=== PATIENT | female | born 1970 | race Caucasian/White ===

== ENCOUNTER → 2016-11-01 | Outpatient (CLI) | payer OTHER ==
[~2016-11-01] MED LIST: CALC-354 PO; GLUCTAB7 PO; LISI-461 PO; MULT-513 PO; PRT/40 PO; VLT50 PO
--- NOTE | 2016-11-01 17:03 | MAMMOGRAPHY REPORT ---
BILATERAL DIGITAL SCREENING MAMMOGRAM TOMOSYNTHESIS WITH CAD: 11/01/2016 CLINICAL HISTORY: Routine screening. Patient has no complaints. TECHNIQUE: Breast tomosynthesis in addition to standard 2D mammography was performed. Current study was also evaluated with a Computer Aided Detection (CAD) system. COMPARISON: Comparison is made to exams dated: 10/29/2015 mammogram, 07/08/2013 mammogram, 10/21/2014 mammogram, 06/17/2012 mammogram, and 06/12/2011 mammogram - [facility]. BREAST COMPOSITION: The tissue of both breasts is almost entirely fatty. FINDINGS: There are a few scattered stable benign-appearing punctate microcalcifications. No new hodges spicious mass, architectural distortion or cluster of microcalcifications is seen. IMPRESSION: ACR BI-RADS CATEGORY 1: NEGATIVE There is no mammographic evidence of malignancy. A 1 year screening mammogram is recommended. The p atient will receive written notification of the results. Approximately 10% of breast cancers are not detected with mammography. A negative mammographic repor t should not delay biopsy if a clinically suggestive mass is present. Kathryn Kahn M.D. ay/:11/01/2016 16:28:22 Curator [employer]: Shanda EVANGELISTA(Patric)(M), [facility] letter sent: Normal 1/2 BI-RADS Code: ACR BI-RADS Category 1: Negative
== END | disposition home or self-care (01) ==
LOC: C.MAMM 11:06
PROVIDERS: ATTEND Nurse Practitioner
DX: Z12.31 Encounter for screening mammogram for malignant neoplasm of breast (principal)

== ENCOUNTER → 2017-01-23 | Outpatient (CLI) | payer OTHER ==
[~2017-01-23] MED LIST changes: +PANT40TA2 PO; -PRT/40 PO
--- NOTE | 2017-01-23 15:16 | DIAGNOSTIC IMAGING REPORT ---
RIGHT PELVIS UNILATERAL HIP 1 VIEW CLINICAL HISTORY: RIGHT HIP PAIN Right pain COMPARISON: None. DISCUSSION: The bones and joint spaces appear intact. There is no evidence of fracture, dislocation or bony disease. There is no evidence for soft tissue swelling. IMPRESSION: Negative study. Electronically signed by: Mejia Marin M.D. 01/23/2017 3:15 PM Dictated Date/Time: 01/23/2017 3:15 PM
== END | disposition home or self-care (01) ==
LOC: C.RDSM 14:00
PROVIDERS: ATTEND Physician Assistant
DX: M25.551 Pain in right hip (principal)

== ENCOUNTER → 2017-03-16 | Outpatient (CLI) | payer OTHER ==
[~2017-03-16] MED LIST changes: -PANT40TA2 PO; +PRT/40 PO
--- NOTE | 2017-03-16 11:51 | DIAGNOSTIC IMAGING REPORT ---
AP PELVIS AND BILATERAL HIPS 3 VIEWS CLINICAL HISTORY: CONTINUED BILATERAL HIP PAIN COMPARISON: Conventional radiographic study dated 01/23/2017 DISCUSSION: No acute fractures are visualized. The joint space of each hip appears relatively well preserved for age. There are no erosive or destructive changes. IMPRESSION: Unremarkable conventional radiographic evaluation of the hips Electronically signed by: Vic Quezada M.D. 03/16/2017 11:50 AM Dictated Date/Time: 03/16/2017 11:49 AM
== END | disposition home or self-care (01) ==
LOC: C.RDSM 13:44
PROVIDERS: ATTEND Physician Assistant
DX: M25.551 Pain in right hip (principal)

== ENCOUNTER → 2017-09-28 | Outpatient (CLI) | payer OTHER ==
[~2017-09-28] MED LIST changes: +PANT40TA2 PO; -PRT/40 PO
[2017-09-28 13:47] LABS: BLOOD UREA NITROGEN 14 mg/dl (7-18); CALCIUM 9.3 mg/dl (8.5-10.1); CARBON DIOXIDE 28 mmol/L (21-32); CREATININE 0.73 mg/dl (0.60-1.20); GLUCOSE 109 mg/dl (70-99); POTASSIUM 3.7 mmol/L (3.5-5.1); SODIUM 137 mmol/L (136-145)
== END | disposition home or self-care (01) ==
LOC: C.LAB1850 11:45
PROVIDERS: ATTEND Physician Assistant Medical
DX: Z00.00 Encounter for general adult medical examination without abnormal findings (principal)

== ENCOUNTER → 2017-10-19 | Outpatient (CLI) | payer OTHER ==
--- NOTE | 2017-10-19 13:39 | DIAGNOSTIC IMAGING REPORT ---
LUMBAR SPINE MIN 4 VIEWS CLINICAL HISTORY: 47 years-old Female presenting with LUMBAR RADICULOPATHY. TECHNIQUE: Frontal, bilateral oblique, lateral, and coned in lateral views of the lumbar spine were obtained. COMPARISON: CT of the abdomen and pelvis from 2006. FINDINGS: No scoliosis. Normal lumbar lordosis. Transitional lumbosacral anatomy. The vertebral body levels are labeled as on the images. Vertebral bodies maintain normal height and alignment. Intervertebral disc height loss noted at T11-12 and potentially at L5-S1. The remaining intervertebral disc spaces are preserved. Mild anterior osteophytosis. No pars defect. No radiographic evidence of compression deformity or subluxation. IMPRESSION: 1. Transitional lumbosacral anatomy. This can variably be a cause of back pain. 2. Mild multilevel degenerative changes. 3. No radiographic evidence of acute osseous injury. Electronically signed by: Matthias Thao M.D. 10/19/2017 1:38 PM Dictated Date/Time: 10/19/2017 1:33 PM
== END | disposition home or self-care (01) ==
LOC: C.RDSM 13:20
PROVIDERS: ATTEND Physician Assistant
DX: M54.16 Radiculopathy, lumbar region (principal)

== ENCOUNTER → 2017-11-16 | Outpatient (CLI) | payer OTHER ==
--- NOTE | 2017-11-19 13:57 | MAMMOGRAPHY REPORT ---
BILATERAL DIGITAL SCREENING MAMMOGRAM TOMOSYNTHESIS WITH CAD: 11/16/2017 CLINICAL HISTORY: Routine screening. Patient has no complaints. TECHNIQUE: Breast tomosynthesis in addition to standard 2D mammography was performed. Current study was also evaluated with a Computer Aided Detection (CAD) system. COMPARISON: Comparison is made to exams dated: 11/01/2016 mammogram, 10/29/2015 mammogram, 10/21/2014 ma mmogram, 07/08/2013 mammogram, 06/17/2012 mammogram, and 06/12/2011 mammogram - [facility]. BREAST COMPOSITION: The tissue of both breasts is almost entirely fatty. FINDINGS: No suspicious masses, calcifications, or areas of architectural distortion are noted in ei ther breast. There has been no significant interval change compared to prior exams. IMPRESSION: ACR BI-RADS CATEGORY 1: NEGATIVE There is no mammographic evidence of malignancy. A 1 year screening mammogram is recommended. The pa tient will receive written notification of the results. Approximately 10% of breast cancers are not detected with mammography. A negative mammographic report should not delay biopsy if a clinically suggestive mass is present. Elizabet Piper M.D. ah/:11/16/2017 14:53:48 Inspector [employer]ke Lining: Padmini EVANGELISTA(Patric)(M), [facility] letter sent: Normal 1/2 BI-RADS Code: ACR BI-RADS Category 1: Negative
== END | disposition home or self-care (01) ==
LOC: C.MAMM 13:50
PROVIDERS: ATTEND Obstetrics & Gynecology
DX: Z12.31 Encounter for screening mammogram for malignant neoplasm of breast (principal)

== ENCOUNTER → 2018-04-03 | Outpatient (CLI) | payer OTHER | END | disposition home or self-care (01) | LOC: C.RDSM 10:26 | PROVIDERS: ATTEND Orthopaedic Surgery Sports Medicine | DX: M79.604 Pain in right leg (principal) ==

== ENCOUNTER → 2018-04-24 | Day surgery (SDC) | payer OTHER ==
[2018-04-23 08:46] VITALS: Ht 157.5 cm; Wt 97.3 kg
[~2018-04-24] VITALS: Ht 157.5 cm; Wt 97.3 kg
[~2018-04-24] MED LIST changes: +CLB/200 PO; +ESOM20CA PO; +IOPAMIDOL INJ 61% 15 ML VIAL ONE; +LIDOCAINE HCL 1% MPF 5 ML VIAL ONE; -LISI-461 PO; -PANT40TA2 PO; +RAMI2.5C PO; +SODIUM CHLORIDE 0.9% INJ 10 ML VIAL ONE; -VLT50 PO
--- NOTE | 2018-04-24 14:06 | History & Physical Bridge - SC ---
H&P Re-Evaluation Bridge Note: I have examined the patient, reviewed the History & Physical and in the interval since the performance of the History & Physical I have noted the following changes of clinical significance: No changes noted
[2018-04-24 14:35] VITALS: TEMP 37.3
--- NOTE | 2018-04-24 14:35 | [facility] Post Operative Brief Note ---
Immediate Operative Summary Operative Date Apr 24, 2018. Pre-Operative Diagnosis L4-L5 disc disease with left lower extremity radiculopathy Post-Operative Diagnosis Same Procedure(s) Performed Lumbar Epidural Steroid Injection Surgeon Dr. Haleigh Kaye Sample Patternmaker Surgeon(s) None Estimated Blood Loss 0 Findings Consistent with Post-Op Diagnosis Specimens NA Drains None Anesthesia Type Local Complication(s) none Disposition Disposition:
--- NOTE | 2018-04-24 14:37 | Discharge Instructions ---
Discharge Instructions Date of Service Apr 24, 2018. Visit Reason for Visit: Lumbar Radiculopathy Discharge Discharge Diagnosis / Problem: Leg pain Discharge Goals Goal(s): Decrease discomfort, Improve function Activity Recommendations Activity Limitations: resume your previous activity Anesthesia . Post Anesthesia Instructions: If you have had General Anesthesia or IV Sedation: * Do not drive today. * Resume driving when surgeon permits. * Do not make important decisions or sign legal documents today. * Call surgeon for: 1. Temperature elevations greater than 101 degrees F. 2. Uncontrollable pain. 3. Excessive bleeding. 4. Persistent nausea and vomiting. 5. Medication intolerance (nausea, vomiting or rash). * For nausea and vomiting use only clear liquids such as: tea, soda, bouillon until nausea subsides, then gradually increase diet as tolerated. * If you have any concerns or questions, call your surgeon's office. If physician is unavailable and it is an emergency, call 911 or go to the nearest emergency room. . Diet Recommendations Recommended Home Diet: no limitations Procedures Procedures Performed: Lumbar Epidural Steroid Injection Pending Studies Studies pending at discharge: no Medical Emergencies . Who to Call and When: Medical Emergencies: If at any time you feel your situation is an emergency, please call 911 immediately. . Non-Emergent Contact Non-Emergency issues call your: Specialist . . "Provider Documentation" section prepared by Jose Maria Kaye. .
[2018-04-24 14:59] VITALS: BP 130/82; PULSE 82; O2SAT 97
--- NOTE | 2018-04-24 15:28 | OPERATIVE REPORT ---
DATE OF OPERATION: 04/24/2018 PREOPERATIVE DIAGNOSIS: L4 disc disease with lower extremity radiculopathy, right greater than left. POSTOPERATIVE DIAGNOSIS: L4 disc disease with lower extremity radiculopathy, right greater than left. PROCEDURE: Right paramedian L4-L5 intralaminar epidural steroid injection under fluoroscopic guidance. INDICATIONS: The patient is a 47-year-old white female who has a burning pain down the left leg and into the foot following a classic L5 dermatomal distribution. When she was last seen, she reports today that the right side is bothering her significantly more than the left. She presents today for an epidural steroid injection. MRI confirmed a disc bulge with foraminal narrowing coming in close contact to the L4-L5 nerve roots. PHYSICAL EXAMINATION: Pleasant female, seated comfortably. She is without any focal weakness. She has no focal deficits, but soreness with forward flexion. CONSENT: Verbal and written consent was obtained from the patient. Risks and benefits were reviewed. Risks include but are not limited to epidural abscess, epidural hematoma, allergic reaction, dural puncture. The patient wishes to proceed. DESCRIPTION OF PROCEDURE: The patient was taken back to the special procedures room of the [facility] where she was maintained in a prone position. Backside was cleansed with Betadine x3 and a dry sterile dressing was applied. Fluoroscopy was used to identify the L4-L5 intralaminar space. Overlying skin on the right side was anesthetized. A 20-gauge 6-inch Tuohy needle was directed down towards the midline into the intralaminar space and advanced under lateral fluoroscopic guidance for a depth of 13 cm. Isovue-300 contrast 1 mL demonstrated epidural uptake pattern. She then underwent injection after negative aspiration of 40 mg of Depo-Medrol and 4 mL of preservative-free sodium chloride. Injection was well tolerated. DISPOSITION: 1. The patient is taken out into the discharge recovery area where she will be discharged home once discharge criteria have been met. 2. Follow up in the [facility] office in 4 weeks' time. I attest to the content of the Intraoperative Record and any orders documented therein. Any exception s are noted below.
== END | disposition home or self-care (01) ==
LOC: X.SURG 12:46
PROVIDERS: ATTEND Physical Medicine & Rehabilitation
DX: M51.16 Intervertebral disc disorders with radiculopathy, lumbar region (principal)

== ENCOUNTER 2024-01-21 13:51 | Observation (INO) ==
--- NOTE | 2024-01-21 15:00 | Emergency Department Note ---
Impression & Plan Multiple falls, Ambulatory dysfunction ED Provider Note NAME: MAI AUGUSTIN AGE: 53 SEX: F : 1970 ARRIVES VIA: Walk-In INFORMANT: Patient, ED PROVIDER(S): Abraham Muñoz MD CHIEF COMPLAINT: Foot weakness HPI: This is a 53-year-old female presenting for right foot weakness. Patient states that she has been falling on this leg more than usual. She has had a feels weak and there is blood accumulating in her leg/fluid. Show she has tingling in her leg as well. On for the past 5 to 6 days. No blood thinners. No fevers, chills, nausea, vomiting, chest pain, back pain, pleurisy. She does note that she previous had a ryan in this leg which taken out Mallard. ROS: See above HPI for pertinent positives & negatives. A total of 10 systems reviewed and were otherwise negative. PHYSICAL EXAMINATION: General: resting comfortably in no acute distress Head: Normocephalic and atraumatic Eyes: Normal inspection, extraocular muscles intact Ear, nose, throat: Normal external exam Neck: Normal range of motion Respiratory: lungs clear to auscultation bilaterally Cardiovascular: Regular rate/rhythm, no murmur GI: soft, nontender, no guarding or rebound Extremities: nontender, moves all extremities, bilateral lower extremity swelling without erythema, point tenderness, soft compartments Neuro: The patient awake and alert, appropriately conversive, no focal deficits, symmetric faces Skin: Warm, dry, and intact MEDICAL DECISION MAKING: This is a 53-year-old female senting for right lower extremity weakness. Patient says she is not following her often due to sensation of having blood/fluid accumulating her leg as well as weakness. She able to lift her leg without any abnormalities. Her strength is equal on bilateral lower extremities. Sensation is intact. Low concern for acute neurologic process or is considered. Otherwise consider DVT/CHF. -Labs reviewed showing no significant leukocytosis, anemia or significant electrolyte disturbance. Troponin negative, BNP negative. Urinalysis reveals no signs of recurrent UTI, likely contamination and will await culture. -Patient's tibia/fibula x-ray as independent her by me reveals healed distal tibia/fib fractures without acute fracture/dislocation -Patient ultrasound of the lower extremity is negative currently -Chest Xray independently interpreted by me showing no pneumothorax, focal opacity, or pleural effusions. -Do suspect patient's symptoms are relating to fluid/failure to thrive. Discussed option with patient including discharge versus admission. Patient as well as family are hesitant to take patient home as she has been falling multiple times do not feel that she is safe to go home. They are requesting admission. -Patient will be discussed with hospitalist service, Dr. Ordaz for admission Differential diagnosis: DVT, stroke, sciatica, fluid overload, fracture ER treatment provided: See below Diagnostics interpreted by me: ECG: None Cardiac Monitoring: An order was placed for continuous cardiac monitoring. The monitor shows a rate of 99 with sinus rhythm. Laboratory studies: As stated above and show below. Imaging studies: See below. Past Med/Surg History Problem List (Updated 01/23/24 @ 10:42 by Abraham Muñoz MD) Metabolic syndrome Severe obesity (BMI >= 40) GERD without esophagitis (Chronic) Hypertension (Chronic) Intellectual functioning disability (Acute) Obesity (Acute) Osteoarthritis of knee (Chronic) Urge and stress incontinence (Acute) Classical migraine without intractable migraine (Chronic) Multiple falls (Chronic) Neuropathy Encounter for gynecological examination without abnormal finding Ambulatory dysfunction (Acute) Mixed stress and urge incontinence Prediabetes Medical History Metabolic syndrome Severe obesity (BMI >= 40) Ambulatory dysfunction Housing instability, housed, homelessness in past 12 months Neuropathy Classical migraine without intractable migraine Mild cervical dysplasia, histologically confirmed Sciatica Postmenopausal status Patellofemoral syndrome Intellectual functioning disability Hypertension GERD without esophagitis Disc degeneration, lumbar Osteoarthritis History of bladder problems Surgical History H/O myringotomy H/O right knee surgery History of tonsillectomy History of bilateral tubal ligation History of cholecystectomy History of open reduction and internal fixation (ORIF) procedure Family History Father Coronary heart disease Heart disease Mother Coronary heart disease Heart disease Denies family history of Colon cancer Ovarian cancer Prostate cancer Diabetes Breast cancer Colorectal cancer Social History Smoking Status: Never smoker Tobacco Type: Cigarettes Second Hand Exposure: No; Do You Dip or Chew Tobacco: No; Hx Alcohol Use: Yes Alcohol type: beer Hx Substance Use: No Preferred Language: Georgian Communication Ability: Effective Visual Impairment: No Limitations Hearing Ability: Normal Figure Refinisher And Repairer Required: No Beliefs That Will Affect Care: None marital status: Current Living Situation: Spouse Feels Safe at Home: Yes Safety Concerns: Feels Safe At This Time Childhood Exposure to Second-Hand Smoke: No Dental Care, Regularly: No Physical Activity Frequency: Does not Exercise Seatbelt Use: other Sunscreen Use: Yes Assistive Devices: Cane, Walker and Wheelchair Allergies Allergies Allergy/AdvReac Type Severity Reaction Status Date / Time codeine Allergy Unknown "EYES ROLL Verified 01/21/24 16:32 BACK IN HEAD" pantoprazole Allergy Verified 01/21/24 16:32 Home Meds Home Medications Medication Instructions Recorded Confirmed glucosamine-chondroitin 250 mg-200 2 tab PO BID 04/07/19 01/21/24 mg tablet multivitamin 1 cap PO QAM 05/18/21 01/21/24 esomeprazole magnesium 20 mg 20 mg PO QAM 01/21/24 01/21/24 capsule,delayed release (Nexium) Previous Rx's Medication Instructions Recorded Wheelchair (Powered) (Power #1 ea 03/28/22 Wheelchair) incontinence pants, reusable 1 ea miscellaneous BID #56 ea 03/28/22 ramipril 10 mg capsule 20 mg (2 x 10 mg) PO QAM #180 caps 11/28/23 diaper,brief,adult,disposable #56 ea 01/04/24 Results & Data (ED) Vital Signs Vital Signs - 24 hr 01/21/24 13:56 01/21/24 14:25 01/21/24 14:36 Temperature 36.5 C Temperature Source Temporal Artery Scan Pulse Rate 113 H 114 H Respiratory Rate 20 24 Respiratory Effort / Characteristics Non-Labored Respiratory Depth Normal Normal Respiratory Pattern Regular Blood Pressure 154/109 H Blood Pressure Mean 124 Pulse Oximetry 94 Oxygen Delivery Method Room Air Sepsis Recent Fever Within 48 Hours No Sepsis New/Unexplained Change in Mental Status N/A Sepsis Action Taken by Nursing No Action Required Laboratory Data 01/21/24 14:23 01/21/24 14:23 Lab Results 01/21/24 Range/Units 14:23 WBC 7.58 (4.8-10.8) K/ul RBC 4.88 (4.20-5.40) M/uL Hgb 13.9 (12.0-16.0) g/dl Hct 42.8 (37.0-47.0) % MCV 87.7 (80.0-100.0) fL MCH 28.5 (25.0-34.0) pg MCHC 32.5 (32.0-36.0) g/dL RDW Std Deviation 44.0 (36.4-46.3) fL RDW Coeff of Ana 13.7 (11.5-14.5) % Plt Count 284 (130-400) K/uL MPV 11.0 (9.4-12.4) fL Immature Gran % (Auto) 0.3 % Neut % (Auto) 59.7 % Lymph % (Auto) 29.4 % Marshall % (Auto) 7.3 % Eos % (Auto) 2.6 % Baso % (Auto) 0.7 % Neut # (Auto) 4.53 (1.40-6.50) K/uL Lymph # (Auto) 2.23 (1.20-3.40) K/uL Marshall # (Auto) 0.55 (0.11-0.59) K/uL Eos # (Auto) 0.20 (0.00-0.50) K/uL Baso # (Auto) 0.05 (0.00-0.20) K/uL Immature Gran # (Auto) 0.02 (0.01-0.20) K/uL Sodium 142 (136-145) mmol/L Potassium 3.9 (3.5-5.1) mmol/L Chloride 108 H (98-107) mmol/L Carbon Dioxide 23 (21-32) mmol/L Anion Gap 11 (3-11) BUN 13 (6-23) mg/dl Creatinine 0.66 (0.6-1.2) mg/dl Est Cr Clr Drug Dosing Not Reportable Est GFR ( Amer) 117.7 ml/min Est GFR (Non-Af Amer) 101.6 ml/min BUN/Creatinine Ratio 19.7 (10-20) Glucose 113 H (70-99(Fasting)) mg/dl Calcium 9.6 (8.6-10.3) mg/dl Troponin I High Sens 4.0 (0-14) pg/ml B-Natriuretic Peptide 18 (0-100) pg/ml Administered Medications Celecoxib (Celebrex 200 Mg Cap) [address] [facility] Stop: 02/22/24 08:59 Last Admin: 01/23/24 10:30 Dose: 200 mg Documented By: MIKE Enalapril Maleate (Enalapril Maleate 10 Mg Tab) [address] [facility] Stop: 02/21/24 08:59 Last Admin: 01/23/24 07:40 Dose: 40 mg Documented By: Admin: 01/22/24 09:01 Dose: 40 mg Documented By: TBK Enoxaparin Sodium (Enoxaparin Inj 40 Mg/0.4 Ml Syr) 40 mg SQ Q12H [facility] Stop: 02/21/24 08:59 Last Admin: 01/23/24 07:39 Dose: Not Given Documented By: Admin: 01/22/24 20:38 Dose: Not Given Documented By: [facility] Admin: 01/22/24 10:55 Dose: Not Given Documented By: TBK Miscellaneous (Esomeprazole Magnesium [Nexium] 20 Mg Capsule,Delayed Release - Order Awaiting Action) 1 each N/A [facility] Stop: 02/21/24 00:00 Last Admin: 01/23/24 07:38 Dose: Not Given Documented By: Admin: 01/22/24 23:40 Dose: Not Given Documented By: Admin: 01/22/24 16:19 Dose: Not Given Documented By: Admin: 01/22/24 07:42 Dose: Not Given Documented By: Admin: 01/21/24 23:55 Dose: Not Given Documented By: MEHDI Multivitamins (Multivitamin Tab) [address] [facility] Stop: 02/21/24 08:59 Last Admin: 01/23/24 07:38 Dose: 1 tab Documented By: Admin: 01/22/24 09:02 Dose: 1 tab Documented By: TBK Discontinued Medications Diclofenac Sodium (Diclofenac Sod 1% Gel 100 Gm Tube) 4 gm EXT QID [facility]; Protocol Stop: 02/21/24 12:59 Last Admin: 01/23/24 07:40 Dose: Not Given Documented By: Admin: 01/22/24 20:38 Dose: Not Given Documented By: [facility] Admin: 01/22/24 18:32 Dose: 4 gm Documented By: Admin: 01/22/24 16:19 Dose: Not Given Documented By: ERMELINDAK Discharge Plan Visit Data Chief Complaint: Leg Injury/Pain Stated Complaint: LEG WEAKNESS, LEG DROOPING ED Provider: Abraham Muñoz Discharge Problem: Multiple falls, Ambulatory dysfunction Patient Disposition: Admitted As Inpatient Discharge Instructions Interventions: ED Discharge Assessment Last Done: 01/21/24 20:47
--- NOTE | 2024-01-21 15:08 | XRay Report ---
XR tibia fibula RT 2V CLINICAL HISTORY: pain, falls COMPARISON: Right tibia and fibula radiographs October 08, 2019. Right knee radiographs April 13. FINDINGS: Old, healed right tibial and fibular diaphyseal fractures are noted. Cortical thickening a long the lateral metadiaphysis of the right tibia was shown on radiographs of April 13, 2023. There is no acute fracture within the right tibia or fibula. Tibial hardware has been removed since radiogr aphs of October 08, 2019. Moderate right knee osteoarthritis is greater within the lateral compartmen t. Right lower leg soft tissue swelling is present. IMPRESSION: 1. No acute fractures within the right tibia or fibula. 2. Old, healed right tibial and fibular fractures, as above. 3. Right lower leg soft tissue swelling. ACT 112: Negative or not required by law. Electronically signed by: Chaz Huerta M.D. 01/21/2024 3:07 PM
[2024-01-21 15:47] LABS: Basophils # (auto) 0.05 K/uL (0.00-0.20); Basophils % (auto) 0.7 %; Eosinophils % (auto) 2.6 %; Hematocrit (blood only) 42.8 % (37.0-47.0); Hemoglobin 13.9 g/dl (12.0-16.0); Immature Granulocytes # (auto) 0.02 K/uL (0.01-0.20); Immature Granulocytes % (auto) 0.3 %; Lymphocytes # (auto) 2.23 K/uL (1.20-3.40); Lymphocytes % (auto) 29.4 %; Mean Corpuscular Hemoglobin 28.5 pg (25.0-34.0); Mean Corpuscular Hgb Conc 32.5 g/dL (32.0-36.0); Mean Corpuscular Volume 87.7 fL (80.0-100.0); Monocytes # (auto) 0.55 K/uL (0.11-0.59); Monocytes % (auto) 7.3 %; Neutrophils # (auto) 4.53 K/uL (1.40-6.50); Neutrophils % (auto) 59.7 %; Platelet Count 284 K/uL (130-400); RDW Coefficient of Variation 13.7 % (11.5-14.5); Red Blood Count 4.88 M/uL (4.20-5.40); White Blood Count 7.58 K/ul (4.8-10.8)
[2024-01-21 15:56] LABS: Anion Gap 11 (3-11); BUN Creatinine Ratio 19.7 (10-20); Blood Urea Nitrogen 13 mg/dl (6-23); Calcium 9.6 mg/dl (8.6-10.3); Carbon Dioxide 23 mmol/L (21-32); Chloride 108 mmol/L (98-107); Est GFR (African American) 117.7 ml/min; Est GFR (Non-African American) 101.6 ml/min; Glucose 113 mg/dl (70-99(Fasting)); Potassium 3.9 mmol/L (3.5-5.1); Sodium 142 mmol/L (136-145)
--- NOTE | 2024-01-21 16:04 | Ultrasound Report ---
RIGHT LOWER EXTREMITY VENOUS DOPPLER CLINICAL HISTORY: swelling + pain COMPARISON STUDY: Right lower extremity venous Doppler ultrasound February 01, 2015. TECHNIQUE: Sonography of the deep venous system of the right lower extremity was performed. Compress ion and augmentation were evaluated. FINDINGS: A prominent right inguinal lymph node is likely benign. This contains a fatty hilum. The r ight common femoral, superficial femoral and popliteal veins were compressible. Augmentation was norm al. Flow was shown within the deep calf vessels although calf vessels were suboptimally visualized on this exam. IMPRESSION: Suboptimal evaluation of the right calf vessels but no evidence of deep venous thrombus w ithin the right lower extremity. ACT 112: Negative or not required by law. Electronically signed by: Chaz Huerta M.D. 01/21/2024 4:02 PM
--- NOTE | 2024-01-21 18:38 | History & Physical Report ---
Date of Service January 21, 2024 Assessment & Plan (1) Ambulatory dysfunction: Plan: PT/OT. Patient requesting inpatient rehabilitation. Acute on chronic ambulatory dysfunction. Unclear if truly a new acute pathology happening vs progressive ambulatory dysfunction over years. CT head and CXR to rule out new acute problem. Follow up urine culture but no specific symptoms of UTI (2) Hypertension: Plan: Switch ramipril for enalapril per hospital formulary (3) GERD without esophagitis: Plan: Switch esomeprazole for pantoprazole per hospital formulary (4) Severe obesity (BMI >= 40): (5) Intellectual functioning disability: (6) Multiple falls: Plan VTE Prophylaxis - Lovenox 40mg SQ daily Diet - regular Disposition - observation to med/surg Admission and Anticipated Discharge Date Admission Date: January 21, 2024 History of Present Illness Chief Complaint: Recurrent falls Primary Care Provider: April Jaimes MD Ebony Elizondo is a 53 year old female who presents to the ER due to recurrent falls. She reports longstanding problem with her legs since the with weakness in her right > left leg. No foot drop. Appears to be worse over the last week and fells she is not safe at home and requesting inpatient rehabilitation. No chest pain, shortness of breath, dizziness. No worsening back pain or numbness in this leg. No areas of cellulitis or swelling. No vision, speech or hearing changes. No extremity change in sensation. No fever, chills, respiratory, gastrointestinal or urinary symptoms. Allergies Allergy/AdvReac Type Severity Reaction Status Date / Time codeine Allergy Unknown "EYES ROLL Verified 01/21/24 16:32 BACK IN HEAD" pantoprazole Allergy Verified 01/21/24 16:32 Home Medications Medication Instructions Recorded Confirmed Type glucosamine-chondroitin 250 mg-200 2 tab PO BID 04/07/19 01/21/24 History mg tablet multivitamin 1 cap PO QAM 05/18/21 01/21/24 History Wheelchair (Powered) (Power #1 ea 03/28/22 11/28/23 Rx Wheelchair) incontinence pants, reusable 1 ea miscellaneous BID #56 ea 03/28/22 11/28/23 Rx ramipril 10 mg capsule 20 mg (2 x 10 mg) PO QAM #180 caps 11/28/23 01/21/24 Rx diaper,brief,adult,disposable #56 ea 01/04/24 Rx esomeprazole magnesium 20 mg 20 mg PO QAM 01/21/24 01/21/24 History capsule,delayed release (Nexium) Past Med/Surg History Problem List Metabolic syndrome Severe obesity (BMI >= 40) GERD without esophagitis (Chronic) Hypertension (Chronic) Intellectual functioning disability (Acute) Obesity (Acute) Osteoarthritis of knee (Chronic) Urge and stress incontinence (Acute) Classical migraine without intractable migraine (Chronic) Multiple falls (Chronic) Neuropathy Encounter for gynecological examination without abnormal finding Ambulatory dysfunction Mixed stress and urge incontinence Prediabetes Medical History Metabolic syndrome Severe obesity (BMI >= 40) Ambulatory dysfunction Housing instability, housed, homelessness in past 12 months Neuropathy Classical migraine without intractable migraine Mild cervical dysplasia, histologically confirmed Sciatica Postmenopausal status Patellofemoral syndrome Intellectual functioning disability Hypertension GERD without esophagitis Disc degeneration, lumbar Osteoarthritis History of bladder problems Surgical History H/O myringotomy H/O right knee surgery History of tonsillectomy History of bilateral tubal ligation History of cholecystectomy History of open reduction and internal fixation (ORIF) procedure Family History Father Coronary heart disease Heart disease Mother Coronary heart disease Heart disease Denies family history of Colon cancer Ovarian cancer Prostate cancer Diabetes Breast cancer Colorectal cancer Social History Smoking Status: Never smoker Tobacco Type: Cigarettes Second Hand Exposure: No; Do You Dip or Chew Tobacco: No; Hx Alcohol Use: Yes Alcohol type: beer Hx Substance Use: No Preferred Language: Arabic Communication Ability: Effective Visual Impairment: No Limitations Hearing Ability: Normal Perinatal Social Worker Required: No Beliefs That Will Affect Care: None marital status: Current Living Situation: Spouse Feels Safe at Home: Yes Safety Concerns: Feels Safe At This Time Childhood Exposure to Second-Hand Smoke: No Dental Care, Regularly: No Physical Activity Frequency: Does not Exercise Seatbelt Use: other Sunscreen Use: Yes Assistive Devices: Cane, Scooter/Electric Scooter and Walker Review of Systems Review of Systems: All systems reviewed & are unremarkable except as noted in HPI & below Physical Exam Constitutional: well developed; + not well nourished and no acute distress Eyes: PERRL, conjunctivae normal, anicteric sclerae ENMT: external ear and nose normal, oropharynx normal Neck: trachea midline, no thyromegaly Respiratory: normal respiratory effort, lungs clear to auscultation Cardiovascular: RRR, no murmur, no edema Gastrointestinal (Abdomen): normal bowel sounds, soft, nontender, no hepatosplenomegaly Musculoskeletal: no cyanosis or clubbing, extremities motor strength 5/5 Skin: no rashes, warm and dry Neurologic: CN's II-XI intact bilaterally, moves all extremities and awake; no focal motor deficits (5/5 strength in all 4 extremities) and not confused Speech / Cognition: normal speech Motor/Sensory: no tremor, no pronator drift and no sensory deficit Cranial Nerves: PERRL, EOM intact bilaterally, normal facial strength, tongue midline, able to rotate head bilaterally, able to elevate shoulders bilaterally, no nystagmus and symmetric palate elevation Coordination: normal [id number]-[id number] test Psychiatric: A+Ox3, euthymic affect Genitourinary: no CVA tenderness Results & Data Results & Data Vital Signs (Past 12 Hours) Vital Signs Temp Pulse Resp BP Pulse Ox O2 Del Method 01/21/24 17:30 99 H 22 153/92 H 95 01/21/24 17:20 93 H 14 96 01/21/24 17:00 91 H 13 139/88 94 01/21/24 16:30 94 H 16 144/83 H 96 01/21/24 16:04 101 H 20 168/76 H 97 01/21/24 15:30 102 H 14 147/85 H 97 01/21/24 15:00 105 H 16 135/89 94 01/21/24 14:36 114 H 01/21/24 14:25 24 01/21/24 13:56 36.5 C 113 H 20 154/109 H 94 Room Air Laboratory Results Abnormal lab results 01/21/24 01/21/24 Range/Units 14:23 19:09 Chloride 108 H (98-107) mmol/L Glucose 113 H (70-99(Fasting)) mg/dl Urine Ketones Trace H (Negative) Ur Leukocyte Esterase Trace H (Negative) U Epithel Cells (Auto) 6-10 H (0-2) /hpf Urine Bacteria (Auto) 1+ H (None Seen) Diagnostic Findings None Medications Administered ER Medications Given: None Code Status & VTE Plan Code Status Full VTE Prophylaxis Plan VTE Prophylaxis will be ordered: Yes PG Care Time/CCT Total # of Minutes Spent Total Time Spent with Patient: Total time spent is greater than 50% in coordination of care (as documented) at patient's floor/unit and/or counseling patient: Coding Level of Care Code 81490 INT INP/OBS CARE 2/55MIN Diagnoses Ambulatory dysfunction R26.2 Hypertension I10 GERD without esophagitis K21.9 Severe obesity (BMI >= 40) E66.01 Intellectual functioning disability F78 Multiple falls R29.6
--- NOTE | 2024-01-21 19:02 | XRay Report ---
XR chest 1V portable HISTORY: ambulatory dysfunction COMPARISON: Chest 06/14/2022. FINDINGS: The lungs are clear. Cardiac silhouette is normal in size. No pleural effusions. No pneumot horax. IMPRESSION: No acute process. ACT 112: Negative or not required by law. Electronically signed by: Radhames High M.D. 01/21/2024 7:01 PM
[2024-01-21 19:51] LABS: Bacteria Urine Automated 1+ (None Seen); Cast Urine Automated 0-2 /lpf (0-2); RBC Urine Automated 0-2 /hpf (0-2); WBC Urine Automated 0-5 /hpf (0-5)
[2024-01-21 20:00] LABS: Appearance Urine Clear (Clear); Bilirubin Urine Negative (Negative); Blood Urine Negative (Negative); Color Urine Yellow; Glucose Urine UA Negative (Negative); Ketones Urine Trace (Negative); Leukocyte Esterase Urine Trace (Negative); Nitrite Urine Negative (Negative); Protein Urine Negative (Negative); Specific Gravity Urine 1.022 (1.000-1.030); Urobilinogen Urine Negative (Negative)
--- NOTE | 2024-01-21 20:03 | CT Scan Report ---
Exam(s): CT HEAD Without Contrast EXAM: CT Head Without Intravenous Contrast CLINICAL HISTORY: Reason for exam: ambulatory dysfunction, multiple falls. TECHNIQUE: Axial computed tomography images of the head/brain without intravenous contrast. CTDI is 35.65 mGy and DLP is 546.36 mGy-cm. Automated exposure control was utilized for the study. A dose lowering technique was utilized adhering to the principles of ALARA. COMPARISON: No relevant prior studies available. FINDINGS: Brain: No hemorrhage, extra-axial fluid collection, mass effect, or edema. Ventricles: Unremarkable. Bones/joints: Unremarkable. No fracture. Soft tissues: Unremarkable. Sinuses: No acute sinusitis. Mastoid air cells: Unremarkable as visualized. IMPRESSION: 1. No acute intracranial abnormality. Electronically signed by: Philip Caputo MD 01/21/24 20:02 PM
[2024-01-21] MEDS ORDERED: ACETAMINOPHEN 325 MG TAB PO PRN (20:46)
[2024-01-22] MEDS ORDERED: NYSTATIN POWDER 15GM BTL EXT PRN (03:50)
[2024-01-22] MEDS: ENALAPRIL MALEATE 10 MG TAB PO SCH (09:01)
[2024-01-22] MEDS: MULTIVITAMIN TAB PO SCH (09:02)
[2024-01-22] MEDS: ENOXAPARIN INJ 40 MG/0.4 ML SYR SQ SCH (10:55)
[2024-01-22] MEDS: DICLOFENAC SOD 1% GEL 100 GM TUBE EXT SCH (16:19)
--- NOTE | 2024-01-22 17:58 | Hospitalist Progress Note ---
Date of Service January 22, 2024 Assessment & Plan (1) Ambulatory dysfunction: Plan: suspect 2nd to advanced OA of b/l knees despite her c/o chronic LLE weakness I do not appreciate this on exam she reports "stiffness" of the RLE but I suspect it is mainly the knee causing such she had generalized weakness of the RLE this past weekend but that, too, is now resolved I can't rule out subacute CVA causing the previous RLE weakness thus will obtain MRI brain Will also obtain MRI lumbar spine to r/o spinal stenosis causing intermittent leg weakness and numbness on right voltaren gel qid for R knee pain she has seen Dr Chu recently from ortho who recommended knee replacement but wants her to lose weight before doing on TKR check B12/B1 levels to be complete also check hip x-rays to r/o fracture, etc but low suspicion of such (2) Hypertension: Plan: Cont SELENE (3) GERD without esophagitis: Plan: PPI (4) Severe obesity (BMI >= 40): Plan: BMI 46 (5) Intellectual functioning disability: (6) Multiple falls: Plan: see #1 above Plan VTE Prophylaxis - Lovenox 40mg SQ daily appreciate PT/OT evals cleared for home needs outpatient therapy - will do such at [place] if MRIs are neg can d/c home tomorrow Admission and Anticipated Discharge Date Admission Date: January 21, 2024 Subjective patient reports chronic LLE weakness from "getting hit by a ball at a baseball game) however, the RLE "stiffness" / weakness was new had multiple falls at home and at [facility]? right leg gets "Stiff" then she simply goes to the ground weakness of RLE, however, IS improved worked with PT today and did well; outpatient PT advised; rehab not needed does have chronic b/l knee pain and sees orthopedics for this did have some numbness in RLE near the medial distal thigh - now improved denies right arm weakness or left arm weakness Review of Systems Review of Systems: CV - no chest pain; chronic edema pulm - no dyspnea at rest GI - no abd pain Physical Exam Physical Exam: gen - obese, NAD, laying in bed comfortably neck - no JVD heart - RRR, s1 s2, no murmur lungs - CTA b/l abd - soft NT ND BS+ ext - 1+ edema, pulses 2+ b/l musculo - b/l knee crepitus with passive flexion/extension; b/l hips - passive ROM does not cause pain; hip flexion strength 5/5 b/l; knee extension 5/5 b/l; ankle dorsiflexion/plantarflexion 5/5 b/l; handgrip 5/5 b/l Results & Data Results & Data Vital Signs (Past 12 Hours) Vital Signs Temp Pulse Resp BP Pulse Ox O2 Del Method 01/22/24 15:34 36.7 C 87 16 122/68 94 Room Air 01/22/24 07:38 36.6 C 89 18 141/90 H 94 Room Air Laboratory Results Laboratory Results - last 48 hr 01/21/24 01/21/24 14:23 19:09 WBC 7.58 RBC 4.88 Hgb 13.9 Hct 42.8 MCV 87.7 MCH 28.5 MCHC 32.5 RDW Std Deviation 44.0 RDW Coeff of Ana 13.7 Plt Count 284 MPV 11.0 Immature Gran % (Auto) 0.3 Neut % (Auto) 59.7 Lymph % (Auto) 29.4 Sandoval % (Auto) 7.3 Eos % (Auto) 2.6 Baso % (Auto) 0.7 Neut # (Auto) 4.53 Lymph # (Auto) 2.23 Sandoval # (Auto) 0.55 Eos # (Auto) 0.20 Baso # (Auto) 0.05 Immature Gran # (Auto) 0.02 Sodium 142 Potassium 3.9 Chloride 108 H Carbon Dioxide 23 Anion Gap 11 BUN 13 Creatinine 0.66 Est Cr Clr Drug Dosing Not Reportable Est GFR ( Amer) 117.7 Est GFR (Non-Af Amer) 101.6 BUN/Creatinine Ratio 19.7 Glucose 113 H Calcium 9.6 Troponin I High Sens 4.0 B-Natriuretic Peptide 18 Urine Color Yellow Urine Appearance Clear Urine pH 6.0 Ur Specific Webster 1.022 Urine Protein Negative Urine Glucose (UA) Negative Urine Ketones Trace H Urine Blood Negative Urine Nitrite Negative Urine Bilirubin Negative Urine Urobilinogen Negative Ur Leukocyte Esterase Trace H Urine WBC (Auto) 0-5 Urine RBC (Auto) 0-2 U Hyaline Cast (Auto) 0-2 U Epithel Cells (Auto) 6-10 H Urine Bacteria (Auto) 1+ H PG Care Time/CCT Total # of Minutes Spent Total Time Spent with Patient: Total time spent is greater than 50% in coordination of care (as documented) at patient's floor/unit and/or counseling patient: Coding Level of Care Code 71692 SUB INP/OBS CARE 235MIN Diagnoses Ambulatory dysfunction R26.2 Hypertension I10 GERD without esophagitis K21.9 Severe obesity (BMI >= 40) E66.01 Intellectual functioning disability F78 Multiple falls R29.6
--- NOTE | 2024-01-22 19:25 | Magnetic Resonance Report ---
MR lumbar spine wo con CLINICAL HISTORY: R leg weakness, numbness; falls TECHNIQUE: Multiplanar sequences through the lumbar spine were obtained, without intravenous contrast . Comparison: Comparison is made to MRI lumbar spine 02/01/2018 FINDINGS: Exam is limited by patient motion. L1-L2: No significant abnormality. L2-L3: Broad-based posterior disc bulge results in moderate canal stenosis, AP diameter 6 mm, and no significant neuroforaminal stenosis. L3-L4: Broad-based posterior disc bulge results in mild canal stenosis and no significant neuroforami nal stenosis. L4-L5: Broad-based posterior disc bulge is seen with moderate bilateral neural foraminal stenosis. L5-S1: No significant abnormality. The spinal ligaments are intact, without evidence of disruption or abnormal signal intensity. The spi nal cord is normal in signal intensity and there is no evidence of cord contusion. There is no eviden ce of an extradural, intradural, extramedullary or intramedullary lesion. Visualized soft tissues are normal. IMPRESSION: Broad-based posterior disc bulge results in moderate canal stenosis, AP diameter 6 mm, and up to mode rate bilateral neuroforaminal stenosis. Findings are grossly similar to prior exam. ACT 112: Negative or not required by law. Electronically signed by: Boubacar Alcantar M.D. 01/22/2024 7:22 PM
[2024-01-23] MEDS: CeleBREX 200 MG CAP PO SCH (10:30)
--- NOTE | 2024-01-23 12:43 | XRay Report ---
XR hips MARISOL 1v w pelvis CLINICAL HISTORY: LE weakness/stiffness, falls COMPARISON: Pelvis and hip radiographs March 16, 2017. FINDINGS: Sacroiliac joints and symphysis pubis are intact. Mild degenerative changes at the symphys is pubis are present. There is no fracture within the pelvis or hips. Hip joint spaces are preserved. There is minimal osteophytosis of the hips. Pelvic calcifications are unchanged. These represent phl eboliths. IMPRESSION: No fractures within the pelvis or hips. ACT 112: Negative or not required by law. Electronically signed by: Chaz Huerta M.D. 01/23/2024 12:41 PM
--- NOTE | 2024-01-23 13:10 | Discharge Summary ---
Date of Service January 23, 2024 Admission HPI Per Admitting Provider Ebony Elizondo is a 53 year old female who presents to the ER due to recurrent falls. She reports longstanding problem with her legs since the 90s with weakness in her right > left leg. No foot drop. Appears to be worse over the last week and fells she is not safe at home and requesting inpatient rehabilitation. No chest pain, shortness of breath, dizziness. No worsening back pain or numbness in this leg. No areas of cellulitis or swelling. No vision, speech or hearing changes. No extremity change in sensation. No fever, chills, respiratory, gastrointestinal or urinary symptoms. Discharge Exam gen - obese, NAD, laying in bed comfortably neck - no JVD heart - RRR, s1 s2, no murmur lungs - CTA b/l abd - soft NT ND BS+ ext - 1+ edema, pulses 2+ b/l musculo - b/l knee crepitus with passive flexion/extension; b/l hips - passive ROM does not cause pain; hip flexion strength 5/5 b/l; knee extension 5/5 b/l; ankle dorsiflexion/plantarflexion 5/5 b/l; handgrip 5/5 b/l Discharge Data Allergies Allergy/AdvReac Type Severity Reaction Status Date / Time codeine Allergy Unknown "EYES ROLL Verified 01/21/24 16:32 BACK IN HEAD" pantoprazole Allergy Verified 01/21/24 16:32 Consultations 01/21/24 17:33 ED Decision to Admit Stat Ordered Studies 01/21/24 14:38 US leg [US venous doppler LE RT] Stat 01/21/24 18:35 CT head/brain wo con Stat 01/22/24 11:45 MR lumbar spine wo con Routine Hospital Course (1) Ambulatory dysfunction: suspect 2nd to advanced OA of b/l knees despite her c/o chronic LLE weakness I do not appreciate this on exam she reports "stiffness" of the RLE but I suspect it is mainly the knee causing such she had generalized weakness of the RLE this past weekend but that, too, is now resolved I can't rule out subacute CVA causing the previous RLE weakness thus will obtain MRI brain Will also obtain MRI lumbar spine to r/o spinal stenosis causing intermittent leg weakness and numbness on right voltaren gel qid for R knee pain she has seen Dr Chu recently from ortho who recommended knee replacement but wants her to lose weight before doing on TKR check B12/B1 levels to be complete also check hip x-rays to r/o fracture, etc but low suspicion of such (2) Hypertension: Cont SELENE (3) GERD without esophagitis: PPI (4) Severe obesity (BMI >= 40): BMI 46 (5) Intellectual functioning disability: (6) Multiple falls: see #1 above Plan VTE Prophylaxis - Lovenox 40mg SQ daily appreciate PT/OT evals cleared for home needs outpatient therapy - will do such at [place] if MRIs are neg can d/c home tomorrow Discharge Plan Discharge Items Patient Disposition: Home - Self-Care Reason For Visit: AMBULATORY DYSFUNCTION Discharge Diagnosis: 1. difficulty walking and falls - due to advanced arthritis of your knees, worse on right 2. numbness of right thigh - likely due to mild degeneration of your lumbar spine (low back) - improved Activity: As commented below Activity Comment: activity as tolerated; follow any recommendations from PT/OT Non-emergency contact: Primary Care Provider and Specialist Call non-emergency contact if: you have any medication questions, your symptoms worsen and your pain is not controlled Follow-up/Referrals: April Jaimes MD [Primary Care Provider] - (see Dr Jaimes in 1 week ) Tres Chu MD [Physician] - 06/23/24 (follow-up for knee arthritis ) Diet: Regular Addtl Attending Provider Instructions: Mrs Elizondo, You were hospitalized due to leg/knee stiffness & weakness on the right side. You also had been having falls. Your weakness/stiffness improved while here. x-rays of your hips were largely normal. Recent x-rays of your knees (done as outpatient) showed severe arthritis. Lumbar spine MRI shows mild degeneration. It is possible that some of the numbness of the right thigh was due to the lumbar spine issue. PT/OT saw you and you did well with your walking. They did recommend ongoing physical therapy for your knees and legs as an outpatient. MRI brain was recommended to ensure your leg weakness/falls weren't due to strokes but you declined having this test. At this time it is likely that your right knee arthritis is the largest culprit in your walking problem. Recommendations - 1. Celebrex 200mg once daily starting 01/24/24. This is an anti-inflammatory pill. DO NOT TAKE [id number]-aqt-ptrujmk motrin, ibuprofen, or naprosyn/alleve. Do not take aspirin. Prescription for celebrex sent to [facility] for you. 2. OK to take [id number]-dsyiyun tylenol (acetaminophen) 1000mg every 6 hours as needed for pain, maximum 3000mg in 24 hours. 3. Ice or heat to your knees as needed/as desired. 4. you are scheduled to see Dr Chu from orthopedics in the fall for your knees. If you need to see him sooner simply call his office to move up that appointment. 5. PT/OT at your convenience. 6. See Dr Jaimes in 1 week for recheck. Return to [facility] if - * you continue to have falls * you have uncontrolled pain in either knee * you cannot walk or bear weight * any other concerns Pending Studies at Discharge: Yes Studies:: vitamin B1 level Stand-Alone Forms: My [facility] [employer], Smoking Cessation Medications and DC Order Prescriptions: New celecoxib [Celebrex] 200 mg Capsule 200 mg PO QAM Qty: 30 1RF Continued (DME) diaper,brief,adult,disposable Misc See Rx Instructions .Route Qty: 56 5RF Rx Instructions: As directed (DME) Power Wheelchair Device See Rx Instructions .Route Qty: 1 0RF Rx Instructions: Heavy duty powerchair, weight 248lb height 5'2" incontinence pants, reusable Misc 1 ea miscellaneous BID Qty: 56 5RF ramipril 10 mg capsule 20 mg PO QAM Qty: 180 3RF multivitamin Capsule 1 cap PO QAM glucosamine-chondroitin 250-200 mg tablet 2 tab PO BID esomeprazole magnesium [Nexium] 20 mg Capsule,Delayed Release(Dr/Ec) 20 mg PO QAM Discharge Orders: Discharge Order (Routine); Ordered 01/23/24 Ordered By: Marlon Oliver/Other Patient Handouts: Osteoarthritis: Common Sites Admission Data Admit Date/Time: 01/21/24 18:36 Attending Provider: Marlon Alexandre Admit Provider: Marlon Ordaz Primary Care Provider: April Jaimes Other Providers: Marlon Ordaz Coding Diagnoses Ambulatory dysfunction R26.2 Hypertension I10 GERD without esophagitis K21.9 Severe obesity (BMI >= 40) E66.01 Intellectual functioning disability F78 Multiple falls R29.6
== END 2024-01-23 16:41 | disposition home or self-care (01) ==
LOC: EDINP 13:51 → ED 13:51 → SUATTDRO 18:36 → 3W 20:47